=== PATIENT | male | born 1990 | race Caucasian/White ===

== ENCOUNTER 2020-03-21 11:49 | Emergency (ER) | payer SELFPAY ==
[2020-03-21] MEDS ORDERED: TETANUS & DIPHTHERIA TOX,ADULT 0.5 ML VIAL ONE (13:08)
[2020-03-21] MEDS ORDERED: BUPIVACAINE 0.5% PF 10 ML VIAL ONE (13:17)
--- NOTE | 2020-03-21 14:07 | RAD REPORT ---
EXAM DESCRIPTION: RAD - Tib Fib Left - 03/21/2020 1:50 pm CLINICAL HISTORY: lower leg injury, r/o fb Pain and swelling COMPARISON: No comparisons FINDINGS: No fracture or radiopaque foreign body is appreciated.
--- NOTE | 2020-03-21 14:44 | ER ---
Nurse's Notes [facility] Name: Hilario Restrepo Age: 29 yrs Sex: Male : 1990 Arrival Date: 03/21/2020 Time: 11:52 Bed 17 Private MD: Diagnosis: Laceration of the Lower Leg Presentation: 03/21 11:55 Chief complaint: Patient states: slipped and fell on an oyster while fishing, sv laceration to the left leg. Coronavirus screen: Client denies travel out of the [place] in the last 14 days. At this time, the client does not indicate any symptoms associated with coronavirus-19. Ebola Screen: No symptoms or risks identified at this time. Complicating Factors: There are no complicating factors for this patient. Risk Assessment: Do you want to hurt yourself or someone else? Patient reports no desire to harm self or others. Onset of symptoms was March 21, 2020. 11:55 Method Of Arrival: Ambulatory sv 11:55 Acuity: CLIFF 3 sv 11:55 Initial Sepsis Screen: Does the patient meet any 2 criteria? No. Patient's initial sv sepsis screen is negative. Does the patient have a suspected source of infection? No. Patient's initial sepsis screen is negative. Historical: - Allergies: 11:55 No Known Allergies; sv - PMHx: 11:55 None; sv - PSHx: 11:55 None; sv - Immunization history:: Last tetanus immunization: unknown. - Social history:: Smoking status: . Screenin:47 Abuse screen: Denies threats or abuse. Nutritional screening: No deficits noted. tw2 Tuberculosis screening: No symptoms or risk factors identified. Fall Risk None identified. Assessment: 12:25 General: Appears in no apparent distress. uncomfortable, well groomed, Behavior is tw2 calm, cooperative, appropriate for age. Pain: Pain: Complains of pain in left leg. 13:50 Reassessment: Patient appears in no apparent distress at this time. No changes from tw2 previously documented assessment. Patient and/or family updated on plan of care and expected duration. Pain level reassessed. Patient is alert, oriented x 3, equal unlabored respirations, skin warm/dry/pink. "its numb now, its a lot better". 13:51 Neuro: Level of Consciousness is awake, alert, obeys commands, Oriented to person, tw2 place, time, situation. Cardiovascular: Patient's skin is warm and dry. Respiratory: Airway is patent Respiratory effort is even, unlabored, Respiratory pattern is regular, symmetrical. GI: No signs and/or symptoms were reported involving the gastrointestinal system. : No signs and/or symptoms were reported regarding the genitourinary system. EENT: No signs and/or symptoms were reported regarding the EENT system. Derm: No signs and/or symptoms reported regarding the dermatologic system. Musculoskeletal: Circulation, motion, and sensation intact. Range of motion: intact in all extremities. Injury Description: Laceration sustained to lateral aspect of left calf is jagged, 2.6 to 7.5 cm long, not bleeding, was sustained 2-4 hours ago. 13:55 Reassessment: provider at bedside at this time. tw2 14:51 Reassessment: Patient appears in no apparent distress at this time. No changes from tw2 previously documented assessment. Patient and/or family updated on plan of care and expected duration. Pain level reassessed. Patient is alert, oriented x 3, equal unlabored respirations, skin warm/dry/pink. Vital Signs: 11:55 BP 155 / 100; Pulse 85; Resp 16; Temp 98.2; Pulse Ox 100% ; Weight 104.33 kg; Height 6 sv ft. 0 in. (182.88 cm); 12:47 BP 156 / 63; Pulse 64; Resp 17; Pulse Ox 99% on R/A; tw2 13:49 BP 142 / 80; Pulse 70; Resp 17; Pulse Ox 98% on R/A; tw2 14:51 BP 128 / 86; Pulse 83; Resp 17; Pulse Ox 95% on R/A; tw2 11:55 Body Mass Index 31.19 (104.33 kg, 182.88 cm) sv ED Course: 11:52 Patient arrived in ED. rg4 11:55 Triage completed. sv 11:55 Arm band placed on. sv 12:04 Colin Guzman PA is PHCP. jm 12:04 Jose Powers MD is Attending Physician. jmm 12:11 Bed in low position. Call light in reach. Pulse ox on. NIBP on. tw2 12:18 Anne Correa, RICK is Primary Nurse. tw2 13:50 Tib Fib Left XRAY In Process Unspecified. EDMS 14:35 Dressings: non-adherent dressing x 2 lateral aspect of left calf. Wound care: to jp3 abrasion, located on lateral aspect of left calf was cleaned with Hibiclens, dressed with Neosporin. 14:37 Dressings: non-adherent dressing x 1 lateral aspect of left calf. Marvin wrap to left leg. jp3 Wound care: to laceration located on lateral aspect of left calf was cleaned with Hibiclens, dressed with Neosporin, Patient tolerated well. 14:56 No provider procedures requiring assistance completed. Patient did not have IV access tw2 during this emergency room visit. Administered Medications: 13:15 Drug: Marcaine (0.5 %) 20 ml {Note: by BARTOLO Pradhan.} Volume: 10 ml; Route: Infiltration; tw2 13:32 Drug: Tetanus-Diphtheria Toxoid Adult 0.5 ml {Epic [employer] Specialist: [employer]. Exp: tw07/17/2021. Lot #: [id number]. } Route: IM; Site: right deltoid; 14:00 Follow up: Response: No adverse reaction tw2 Outcome: 14:43 Discharge ordered by . rosette 14:56 Discharged to home ambulatory. tw2 14:56 Condition: stable 14:56 Discharge instructions given to patient, Instructed on discharge instructions, follow up and referral plans. medication usage, wound care, Demonstrated understanding of instructions, follow-up care, medications, wound care, Prescriptions given X 1. 14:56 Patient left the ED. tw2 Signatures: Dispatcher [employer] EDLe Sanders RN RN sv Mickail, Joel, PA PA jmm Wise, Tara, RN RN 2 Slime Caraballo4 Herson Evans jp3 Corrections: (The following items were deleted from the chart) 13:52 12:25 Pain: tw2 tw2
--- NOTE | 2020-03-21 14:44 | EDPHYS ---
Physician Documentation [facility] Name: Hilario Restrepo Age: 29 yrs Sex: Male : 1990 Arrival Date: 03/21/2020 Time: 11:52 Bed 17 Private MD: ED Physician Jose Powers HPI: 03/21 12:46 This 29 yrs old Male presents to ER via Ambulatory with complaints of jmm Laceration To Leg. 12:46 Onset: The symptoms/episode began/occurred acutely, just prior to arrival. Modifying jmm factors: The symptoms are alleviated by nothing. the symptoms are aggravated by nothing. This is a 29 year old male with no chronic medical conditions that presents to the ED with complaints of fall injury which occurred while fishing. Patient felling, cutting his lower leg on shells. . Historical: - Allergies: 11:55 No Known Allergies; sv - PMHx: 11:55 None; sv - PSHx: 11:55 None; sv - Immunization history:: Last tetanus immunization: unknown. - Social history:: Smoking status: . ROS: 12:46 Constitutional: Negative for fever, chills, and weight loss, Cardiovascular: Negative jmm for chest pain, palpitations, and edema, Respiratory: Negative for shortness of breath, cough, wheezing, and pleuritic chest pain. 12:46 Skin: Positive for laceration(s). 12:46 All other systems are negative. Exam: 12:46 Constitutional: This is a well developed, well nourished patient who is awake, alert, jmm and in no acute distress. Head/Face: atraumatic. Eyes: EOMI, no conjunctival erythema appreciated ENT: Moist Mucus Membranes Neck: Trachea midline, Supple Chest/axilla: Normal chest wall appearance and motion. Cardiovascular: Regular rate and rhythm. No edema appreciated Respiratory: Normal respirations, no respiratory distress appreciated Abdomen/GI: Non distended, soft Back: Normal ROM 12:46 MS/ Extremity: Moves all extremities, no obvious deformities appreciated, no edema noted to the lower extremities Neuro: Awake and alert, normal gait Psych: Behavior is normal, Mood is normal, Patient is cooperative and pleasant 12:46 Skin: 6 cmlaceration noted to the left calf. Vital Signs: 11:55 BP 155 / 100; Pulse 85; Resp 16; Temp 98.2; Pulse Ox 100% ; Weight 104.33 kg; Height 6 sv ft. 0 in. (182.88 cm); 12:47 BP 156 / 63; Pulse 64; Resp 17; Pulse Ox 99% on R/A; tw2 13:49 BP 142 / 80; Pulse 70; Resp 17; Pulse Ox 98% on R/A; tw2 14:51 BP 128 / 86; Pulse 83; Resp 17; Pulse Ox 95% on R/A; tw2 11:55 Body Mass Index 31.19 (104.33 kg, 182.88 cm) sv Laceration: 14:42 Wound Repair of 6cm ( 2.4in ) subcutaneous laceration to left leg and lateral aspect of [facility] left calf. Distal neuro/vascular/tendon intact. Anesthesia: Local anesthetic administered with 10 mls of 0.5% marcaine. Wound prep: Extensive cleansing, Copious irrigation. Skin closed with 4 3-0 Prolene using simple sutures and sterile technique. Patient tolerated well. MDM: 13:03 Patient medically screened. [facility] 14:41 Data reviewed: vital signs, nurses notes. Counseling: I had a detailed discussion with rosette the patient and/or guardian regarding: the historical points, exam findings, and any diagnostic results supporting the discharge/admit diagnosis, the need for outpatient follow up, to return to the emergency department if symptoms worsen or persist or if there are any questions or concerns that arise at home. ED course: Patient's wound irrigated copious. Wound loosely approximated. Patient given strict wound infection return precautions. Patient understood and agrees with the plan of care. . 03/21 13:04 Order name: Tib Fib Left XRAY; Complete Time: 14:19 [facility] Administered Medications: 13:15 Drug: Marcaine (0.5 %) 20 ml {Note: by PA. Lorne} Volume: 10 ml; Route: Infiltration; tw2 13:32 Drug: Tetanus-Diphtheria Toxoid Adult 0.5 ml {Radiology Services Manager: [employer]. Exp: 07/17/2021. Lot #: [id number]. } Route: IM; Site: right deltoid; 14:00 Follow up: Response: No adverse reaction tw2 Disposition: 15:25 Co-signature as Attending Physician, Jose Powers MD. rn Disposition: 03/21/20 14:43 Discharged to Home. Impression: Laceration of the Lower Leg. - Condition is Stable. - Discharge Instructions: Laceration Care, Adult. - Prescriptions for Doxycycline Hyclate 100 mg Oral Tablet - take 1 tablet by ORAL route every 12 hours; 20 tablet. - Medication Reconciliation Form, Thank You Letter, Antibiotic Education, Prescription Opioid Use form. - Follow up: Private Physician; When: 7 - 10 days; Reason: Recheck today's complaints, Continuance of care, Staple/Suture removal, Re-evaluation by your physician. Signatures: Dispatcher [employer] Le Leonard, RN RN Colin Berger PA PA jmm Nieto, Roman, MD MD rn Wise, Tara, RN RN tw2 Corrections: (The following items were deleted from the chart) 14:56 14:43 03/21/2020 14:43 Discharged to Home. Impression: Laceration of the Lower Leg. tw2 Condition is Stable. Forms are Medication Reconciliation Form, Thank You Letter, Antibiotic Education, Prescription Opioid Use. Follow up: Private Physician; When: 7 - 10 days; Reason: Recheck today's complaints, Continuance of care, Staple/Suture removal, Re-evaluation by your physician. rosette
[2020-03-23 11:13] VITALS: TEMP 98.2
[2020-03-23 11:17] VITALS: BP 128/86; O2SAT 95
== END 2020-03-21 14:56 | disposition home or self-care (01) ==
LOC: ER 11:49
PROC: 0JQP0ZZ Repair Left Lower Leg Subcutaneous Tissue and Fascia, Open Approach (ICD-10-PCS; principal; 2020-03-21)
DX: S81.812A Laceration without foreign body, left lower leg, initial encounter (principal); W17.89XA Other fall from one level to another, initial encounter; Y93.89 Activity, other specified; Y92.832 Beach as the place of occurrence of the external cause; Y99.8 Other external cause status; Z23 Encounter for immunization
CPT/HCPCS: 90471; 90714; 99284